=== PATIENT | female | born 1975 | race Caucasian/White ===

== ENCOUNTER 2019-05-01 13:35 | Day surgery (SDC) | payer MEDICARE, MEDICAID ==
[~2019-05-01 13:35] MED LIST: Ferumoxytol (NON ERSD) 510 MG in Sodium Chloride 0.9% 250 ML 150 ML IVPB SCH
[2019-05-01 14:05] VITALS: BP 179/87; TEMP 98.5
[2019-05-01] MEDS ORDERED: Ferumoxytol (NON ERSD) 510 MG in Sodium Chloride 0.9% 250 ML 150 ML IVPB SCH (15:15)
== END 2019-05-01 16:49 | disposition home or self-care (01) ==
LOC: ONC/OP 13:35
PROVIDERS: ATTEND Nurse Practitioner Acute Care
DX: E61.1 Iron deficiency (principal); Z88.0 Allergy status to penicillin
CPT/HCPCS: 96365; J7050; Q0138

== ENCOUNTER 2019-05-08 13:10 | Day surgery (SDC) | payer MEDICARE, MEDICAID | END 2019-05-08 16:50 | disposition home or self-care (01) | LOC: ONC/OP 13:10 | PROVIDERS: ATTEND Internal Medicine Hematology & Oncology | DX: E61.1 Iron deficiency (principal); Z88.0 Allergy status to penicillin | CPT/HCPCS: 96365; J7050; Q0138 ==